=== PATIENT | male | born 1975 | race Caucasian/White ===

== ENCOUNTER 2020-04-05 07:30 | Inpatient (IN) | payer SELFPAY ==
[~2020-04-05] VITALS: Ht 157.5 cm; Wt 86.2 kg
[2020-04-05 07:42] VITALS: Ht 157.5 cm; Wt 86.2 kg
--- NOTE | 2020-04-05 08:01 | NUR ---
44 YEAR OLD MALE PRESENTS FOR DIZZINESS, VOMITING, GENERALIZED WEAKNESS. PT REPORTS "I GET TIRED WITH WALKING. I FEEL LIKE IM DRUNK." PT DENIES CHEST PAIN AND SICK CONTACTS. PT IS ANSWERING QUESTIONS APPROPRIATELY, SPEAKING IN FULL CLEAR SENTENCES. PT IS AWAKE, ALERT, RESP E/U.
[2020-04-05 08:56] LABS: RED CELL DISTRIBUTION WIDTH 13.4 % (11.5-14.5)
[2020-04-05 09:02] LABS: PLATELET COUNT 78 x10^3mcL (130-400)
--- NOTE | 2020-04-05 09:29 | NUR ---
PT IS AWAKE, ALERT, RESP E/U. PTS ONLY COMPLAINT CURRENTLY IS HAND AND FOOT PAIN. PT APPEARS LESS DIAPHORETIC.
[2020-04-05 09:47] LABS: ALKALINE PHOSPHATASE 90 U/L (46-116); ALT/SGPT 63 U/L (16-63); AST/SGOT 86 U/L (15-37); BILIRUBIN TOTAL 1.85 mg/dL (0.20-1.00); CALCIUM 8.3 mg/dL (8.5-10.1); CARBON DIOXIDE 26.6 mmol/L (21-32); CHLORIDE SERUM 89 mmol/L (98-107); CREATININE SERUM 1.4 mg/dL (0.7-1.3); GFR1 58 mL/min; GLUCOSE SERUM 172 mg/dL (74-106); SODIUM SERUM 130 mmol/L (136-145); TOTAL PROTEIN, SERUM 7.9 g/dL (6.4-8.2)
[2020-04-05 09:48] LABS: ALBUMIN 3.3 g/dL (3.4-5.0); POTASSIUM SERUM 2.4 mmol/L (3.5-5.1)
--- NOTE | 2020-04-05 10:32 | NUR ---
PT MEDICATED PER MD ORDER. PT CONTINUES TO REPORT HAND AND FOOT PAIN. PT IS AWKAE, ALERT, RESP E/U.
--- NOTE | 2020-04-05 10:34 | NUR ---
ULTRASOUND AT BEDSIDE
--- NOTE | 2020-04-05 11:31 | NUR ---
URINE AND MRSA SAMPLES OBTAINED AND TAKEN TO LAB.
--- NOTE | 2020-04-05 11:44 | NUR ---
PT NOTED TO BE SLEEPING. GOOD CHEST RISE AND FALL NOTED. PT EASILY AROUSABLE.
[2020-04-05 12:26] LABS: BAND NEUTROPHIL 3 % (0-10); MONOCYTE 9 % (0-7); SEGMENTED NEUTROPHILS 82 % (37-75)
[2020-04-05 12:27] LABS: rbc morphology (normal/abnorm) NORMAL (NORMAL)
--- NOTE | 2020-04-05 12:45 | NUR ---
RECEIVED PT FROM ED, REPORT GIVEN BY EDWARD ORTIZ. PT ARRIVED ON [facility] ASSISTED BY EMT. PT IS ADMITTED FOR SEPSIS, ETOH WITHDRAWEL, AND COVID R/O. PT IS AAOX4, LETHARGIC, DROWSY. DENIES WARD AND DIZZINESS. SEIZURE PRECAUTIONS IN PLACE FOR ETOH WITHDRAWEL. TELE [address] READING SINUS TACH, HR 101. DENIES C/P, PRESSURE AND PALPITATIONS. ABDOMEN SOFT, NONTENDER, NONDISTENDED. BOWEL SOUNDS ACTIVE X4 QUADS. NO S/S OF N/V AT THIS TIME. DENIES DIARRHEA AND CONSTIPAITION. LAST BM ON 04.03.20 FORMED. VOIDS FREELY. DISTAL PULSES MODERATE, SKIN WARM, CAP REFILL < 3 SECS. NO EDEMA. IV CATHS TO RFA AND LAC BOTH SITES WNL. COVERED WITH CDI DRESSING. DENIES PAIN. ORIENTED PT TO ROOM AND CALL LIGHT. WILL CONTINUE TO MONITOR. CALL LIGHT WITHIN REACH. BED IN LOWEST POSITION.
--- NOTE | 2020-04-05 14:06 | NUR ---
IVF N/S AT 100ML/HOUR INITIATED AT THIS TIME. DR. BERRY ATTEMPTED TO ASSESS AND QUESTION PT. PT TOO GROGGY TO INTERVIEW. DR. BERRY STATED HE WILL TRY AGAIN LATER.
[2020-04-05 14:28] LABS: CHOLESTEROL/HDL RATIO 3.9; PHOSPHOROUS 1.4 mg/dL (2.5-4.9)
[2020-04-05 14:34] LABS: MAGNESIUM 0.9 mg/dL (1.8-2.4)
[2020-04-05 15:12] VITALS: BP 96/69
[2020-04-05 15:46] LABS: microscopic required? YES; urine erythrocyte 2+ (NEGATIVE)
[2020-04-05 16:05] LABS: AMPHETAMINE QUAL UR NONE DETECTED (See below)
--- NOTE | 2020-04-05 16:05 | NUR ---
MAG SULFATE 2GM IVPB GIVEN FOR MAG = 0.9. PT DENIES C/P, PRESSURE AND PALPITATIONS. DENIES PAIN. CALL LIGHT WITHIN REACH.
[2020-04-05 16:53] VITALS: BP 100/67
[2020-04-05 16:53] LABS: CALCIUM 8.5 mg/dL (8.5-10.1); CARBON DIOXIDE 21.7 mmol/L (21-32); CHLORIDE SERUM 92 mmol/L (98-107); CREATININE SERUM 1.3 mg/dL (0.7-1.3); GFR1 > 60 mL/min; GLUCOSE SERUM 171 mg/dL (74-106); SODIUM SERUM 133 mmol/L (136-145)
[2020-04-05 17:03] LABS: POTASSIUM SERUM 2.6 mmol/L (3.5-5.1)
--- NOTE | 2020-04-05 17:25 | NUR ---
REPORTED TO DR. BERRY THAT k+=2.6. DR. BERRY STATED HE MAY ORDER ANOTHER BMP, OR A K-LEDY WILL BE ORDERED.
--- NOTE | 2020-04-05 18:44 | NUR ---
CALLED DR. BERRY A SECOND TIME AND REMINDED HIM THAT PT'S k+= 2.6 AND NO NEW ORDERS HAVE BEEN RECEIVED. DR. BERRY STATED YES THIS IS ON MY LIST, I WILL ORDER SOMETHING.
--- NOTE | 2020-04-05 18:49 | NUR ---
RESP EVEN AND UNLABORED. ON R/A. DENIES PAIN, NO DISTRESS NOTED. IV CATH TO RFA AND LAC PATENT. SITE WNL. CALL LIGHT WITHIN REACH. WILL ENDORSE ALL CARE TO NOC SHIFT RN.
[2020-04-05 19:35] VITALS: BP 101/68
--- NOTE | 2020-04-05 19:35 | NUR ---
RECEIVED PT ASLEEP BUT EASILY AROUSABLE.A/O X3.SYRI[place] SPEAKING ONLY.ON SEIZURE PRECAUTION FOR ALCOHOL WITHDRAWAL PROTOCOL.DENIES CHESTPAIN.BP 101/68 MMHG,HR 102.ON DROPLET PRECAUTION FOR PUI/COVID.WILL OBSERVE PROTOCOL.
[2020-04-06 02:27] LABS: CALCIUM 8.1 mg/dL (8.5-10.1); CARBON DIOXIDE 27.9 mmol/L (21-32); CHLORIDE SERUM 103 mmol/L (98-107); CREATININE SERUM 0.7 mg/dL (0.7-1.3); GFR1 > 60 mL/min; GLUCOSE SERUM 137 mg/dL (74-106); POTASSIUM SERUM 3.8 mmol/L (3.5-5.1); SODIUM SERUM 137 mmol/L (136-145)
--- NOTE | 2020-04-06 04:57 | NUR ---
PT SLEPT WELL ALL NIGHT.NO SEIZURE ACTIVITY NOTED.SEIZURE PRECAUTION OBSERVED.PADDED RAILS IN PLACED.ON LIBRIUM PO Q8H RTC.DENIES ANY PAIN OR DISCOMFORT.ON DROPLET PRECAUTION FOR PUI/COVID.GOODHANDWASHING TECHNIQUE OBSERVED.ALL NEEDS MET.WILL CONTINUE TO MONITOR.
[2020-04-06 06:08] VITALS: BP 114/66
[2020-04-06 07:19] LABS: BASOPHIL % 0.1 % (0-2); RED CELL DISTRIBUTION WIDTH 13.7 % (11.5-14.5)
[2020-04-06 07:43] LABS: CALCIUM 7.8 mg/dL (8.5-10.1); CARBON DIOXIDE 26.2 mmol/L (21-32); CHLORIDE SERUM 102 mmol/L (98-107); CREATININE SERUM 0.6 mg/dL (0.7-1.3); GFR1 > 60 mL/min; GLUCOSE SERUM 124 mg/dL (74-106); MAGNESIUM 2.2 mg/dL (1.8-2.4); PHOSPHOROUS 1.4 mg/dL (2.5-4.9); POTASSIUM SERUM 3.2 mmol/L (3.5-5.1); SODIUM SERUM 137 mmol/L (136-145)
[2020-04-06 07:44] LABS: ALBUMIN 2.4 g/dL (3.4-5.0)
[2020-04-06 08:00] LABS: PLATELET COUNT 56 x10^3mcL (130-400)
[2020-04-06 08:15] VITALS: BP 111/66
[2020-04-06 12:41] VITALS: BP 113/80
--- NOTE | 2020-04-06 12:51 | NUR ---
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 PT A/O X4, ENGLISH SPEAKING, CALM AND COOPERATIVE WITH CARE. TELE # 30, SINUS TACHY. S1 AND S2 NOTED. PULSES PALP, NO EDEMA NOTED. LUNG SOUNDS CLEAR BILAT, PT ON RA. BREATHING EVEN/UNLABORED, IN NO ACUTE RESP DISTRESS. GEN WEAKNESS NOTED, PT IS AMBULATORY. PT REPORTS NO PAIN AT THIS TIME. IV TO RFA/LAC PATENT, DRESSING CDI. WILL CONTINUE TO MONITOR.
--- NOTE | 2020-04-06 14:10 | NUR ---
PT COMPLAINING OF 8/10 ACHE PAIN TO BILATERAL HANDS. MEDICATED WITH NORCO PER EMAR. PT WANTING TO SHOWER, STATES THAT FAMILY WILL BRING CLOTHES FOR HIM TO WEAR. IV TO CHASE AND YVONNE WRAPPED AND TAPED, TAKEN OFF TELE FOR 10 MINS SO HE CAN SHOWER. WILL CONTINUE TO MONITOR.
--- NOTE | 2020-04-06 14:19 | NUR ---
Discount pharmacy card and list to low cost medical clinics given to Deepa Wilson and she will hand it to patient.
[2020-04-06] MEDS ORDERED: FOL1 PO (14:26)
[2020-04-06] MEDS ORDERED: THI100 PO (14:30)
[2020-04-06] MEDS ORDERED: THERA-M CAPLET1 EACH PO (14:31)
[2020-04-06 15:08] VITALS: BP 113/80
--- NOTE | 2020-04-06 16:14 | NUR ---
REVIEWED DISCHARGE PAPERWORK WITH PT USING [employer], IN TUBE CONVERSION TECHNICIAN NUMBER [id number]. REVIEWED ALCOHOL USE DISORDER EDUCATION PACKET, NEW PRESCRIPTIONS, AND WHEN TO FOLLOW UP WITH PCP. IV LINES D/C'D, TELE REMOVED AND RETURNED TO SPIKE MAKER. PT AWAITING RIDE HOME.
== END 2020-04-06 16:30 | disposition home or self-care (01) | DRG 871 ==
LOC: ED 07:30 → DU 11:38
PROVIDERS: Emergency Medicine; ADMIT Internal Medicine; ATTEND Internal Medicine
DX: A41.9 Sepsis, unspecified organism (principal); R65.21 Severe sepsis with septic shock; Z20.828 Contact with and (suspected) exposure to other viral communicable diseases; E87.6 Hypokalemia
CPT/HCPCS: 82962; 83880; 84425; G0378; G0480; J0456; J0696; J2060; J2405; J2560; J3475; J3480; J3490; J7030; J7060; Q0092; U0003-CS